=== PATIENT | female | born 1960 | race Caucasian/White ===

== ENCOUNTER 2016-10-21 09:38 | Emergency (ER) | payer MEDICARE, MEDICAID ==
[2016-10-21 13:31] LABS: ABSOLUTE EOSINOPHILS # (AUTO) 0.1 10^3/uL (0.0-0.6); ABSOLUTE LYMPHOCYTES (AUTO) 1.7 10^3/uL (0.5-4.7); ABSOLUTE MONOCYTES (AUTO) 0.5 10^3/uL (0.1-1.4); ABSOLUTE NEUT (AUTO) 2.4 10^3/uL (1.7-8.2); EOSINOPHILS % (AUTO) 2.1 % (0-6); HEMATOCRIT 38.8 % (36.0-47.0); HEMOGLOBIN 12.8 g/dL (12.0-15.5); HGB HCT DIFFERENCE -0.4; LYMPHOCYTES % (AUTO) 36.1 % (13-45); MEAN CORPUSCULAR HEMOGLOBIN 30.8 pg (27.0-33.4); MEAN CORPUSCULAR VOLUME 93 fl (80-97); MONOCYTES % (AUTO) 11.4 % (3-13); RED BLOOD COUNT 4.16 10^6/uL (3.72-5.28); RED CELL DISTRIBUTION WIDTH 13.6 % (11.5-14.0); SEGMENTED NEUTROPHILS % (AUTO) 49.4 % (42-78); WHITE BLOOD COUNT 4.8 10^3/uL (4.0-10.5)
[2016-10-21 13:50] LABS: ALANINE AMINOTRANSFERASE 13 U/L (9-52); ALBUMIN 3.8 g/dL (3.5-5.0); ALKALINE PHOSPHATASE 52 U/L (38-126); ANION GAP 10 (5-19); ASPARTATE AMINO TRANSFERASE 14 U/L (14-36); BILIRUBIN,TOTAL 0.6 mg/dL (0.2-1.3); BLOOD UREA NITROGEN 19 mg/dL (7-20); CALCIUM 9.7 mg/dL (8.4-10.2); CARBON DIOXIDE 28 mmol/L (22-30); CHLORIDE 102 mmol/L (98-107); CREATININE RESULT 0.92 mg/dL (0.52-1.25); GLUCOSE 53 mg/dL (75-110); LIPASE 129.2 U/L (23-300); POTASSIUM 4.1 mmol/L (3.6-5.0); SODIUM 140.1 mmol/L (137-145); TOTAL PROTEIN 6.5 g/dL (6.3-8.2)
--- NOTE | 2016-10-21 15:15 | ER Document Report ---
ED General - General Chief Complaint: High Blood Sugar Stated Complaint: INSULIN ISSUES TRAVEL OUTSIDE OF THE [place] IN LAST 30 DAYS: No - HPI Patient complains to provider of: elevated blood sugar Notes: Page coming in for evaluation of hypoglycemia. Patient has a history of mental disability is currently living at a home here in [place]. telephone sex worker or caregiver at bedside states patient was recently transferred from [facility] to their house last night with no other paperwork states the patient had breakfast this morning they took the ultra graft breakfast the patient's blood sugar was greater than 400. Patient had other symptoms but decision was made to come to ER for further evaluation there is question about the patient's medications as that she is on multiple psychiatric medications as well as diabetic medications and breast cancer medications. No other information was able to be obtained from the caregiver. Otherwise patient is alert and mildly confused no obvious distress. - Related Data Allergies/Adverse Reactions: No Known Allergies Allergy (Unverified 10/21/16 09:42) Past Medical History - Social History Smoking Status: Never Smoker Chew tobacco use (# tins/day): No Frequency of alcohol use: None Drug Abuse: None Family History: Reviewed & Not Pertinent Patient has suicidal ideation: No Patient has homicidal ideation: No Endocrine Medical History: Reports: Hx Diabetes Mellitus Type 2 Renal/ Medical History: Denies: Hx Peritoneal Dialysis - Immunizations Hx Diphtheria, Pertussis, Tetanus Vaccination: Yes Review of Systems - Review of Systems -: Yes ROS unobtainable due to patient's medical condition - Patient with mental disability Physical Exam - Vital signs Vitals: Temp Pulse BP Pulse Ox 97.4 F 117 H 132/70 H 98 10/21/16 09:45 10/21/16 09:45 10/21/16 09:45 10/21/16 09:45 Interpretation: Normal - General General appearance: Appears well, Alert - HEENT Head: Normocephalic, Atraumatic Eyes: Normal Pupils: PERRL - Respiratory Respiratory status: No respiratory distress Chest status: Nontender Breath sounds: Normal Chest palpation: Normal - Cardiovascular Rhythm: Regular Heart sounds: Normal auscultation Murmur: No - Abdominal Inspection: Normal Distension: No distension Bowel sounds: Normal Tenderness: Nontender Organomegaly: No organomegaly - Back Back: Normal, Nontender - Extremities General upper extremity: Normal inspection, Nontender, Normal color, Normal ROM , Normal temperature General lower extremity: Normal inspection, Nontender, Normal color, Normal ROM , Normal temperature, Normal weight bearing. No: Yaneth's sign - Neurological Neuro grossly intact: Yes Cognition: Normal [place] Coma Scale Eye Opening: Spontaneous [place] Coma Scale Verbal: Oriented [place] Coma Scale Motor: Obeys Commands [place] Coma Scale Total: 15 - Psychological Associated symptoms: Normal affect, Normal mood - Skin Skin Temperature: Warm Skin Moisture: Dry Skin Color: Normal Course - Re-evaluation Re-evalutation: 10/21/16 18:58 Evaluation of the patient shows no critical etiology. Patient did have a low blood sugar and chem panel however she was able to tolerate a full meal. No signs of hypoglycemia on reexamination. I did go over the patient's medications in bottles at bedside. Instructed to oncology social work to take medications as instructed on the bottle. Patient will be discharged home. - Vital Signs Vital signs: Temp Pulse Resp BP Pulse Ox 98.0 F 83 18 106/57 L 96 10/21/16 15:20 10/21/16 15:20 10/21/16 15:20 10/21/16 15:20 10/21/16 15:20 - Laboratory Result Diagrams: 10/21/16 13:05 10/21/16 13:05 Laboratory results interpreted by me: 10/21/16 10/21/16 10:32 13:05 Glucose 53 L POC Glucose 225 H Discharge - Discharge Clinical Impression: Elevated blood sugar Condition: Good Disposition: HOME, SELF-CARE Instructions: Hyperglycemia ([facility]) Additional Instructions: Please continue the patient's medication as directed on the patient's sheet. Please have patient follow-up with her new primary care physician tomorrow. Return to ER symptoms worsen. Forms: Return to Work
[2016-10-21 15:42] VITALS: BP 106/57
== END 2016-10-21 15:40 | disposition home or self-care (01) ==
LOC: ER 09:38
DX: E11.65 Type 2 diabetes mellitus with hyperglycemia (principal); F99 Mental disorder, not otherwise specified; Z79.899 Other long term (current) drug therapy
CPT/HCPCS: 36415; 80053; 82962; 83036; 83690; 85025; 99285

== ENCOUNTER → 2016-11-19 | Outpatient (CLI) | payer MEDICARE, MEDICAID | LOC: WI 13:01 | PROVIDERS: ATTEND Internal Medicine | DX: Z12.31 Encounter for screening mammogram for malignant neoplasm of breast (principal) | CPT/HCPCS: G0202-52 ==

== ENCOUNTER → 2017-02-03 | Outpatient (CLI) | payer MEDICARE, OTHER, MEDICAID | LOC: OD 10:43 | PROVIDERS: ATTEND Internal Medicine | DX: M25.561 Pain in right knee (principal); M25.461 Effusion, right knee ==